=== PATIENT | male | born 1970 | race Two or more races ===

== ENCOUNTER 2024-02-01 21:16 | Emergency (ER) | payer MEDICAID, OTHER ==
[~2024-02-01] VITALS: Ht 177.8 cm; Wt 100.0 kg
[2024-02-01 22:01] LABS: Basophils # (auto) 0.1 10 ^3/uL (0-0.2); Basophils % (auto) 0.8 % (0.0-2.0); Eosinophils # (auto) 0.1 10 ^3/uL (0-0.8); Eosinophils % (auto) 0.8 % (0.0-7.0); Hematocrit 42.3 % (41.0-53.0); Hemoglobin 14.4 g/dL (13.5-17.5); Lymphocytes # (auto) 1.5 10 ^3/uL (0.4-5.4); Lymphocytes % (auto) 20.5 % (10.0-50.0); Mean Corpuscular Hemoglobin 31.4 pg (28.0-32.0); Mean Corpuscular Volume 92.3 fL (80.0-100.0); Monocytes # (auto) 0.6 10 ^3/uL (0-1.3); Monocytes % (auto) 8.4 % (0.0-12.0); Neutrophils # (auto) 4.9 10 ^3/uL (1.6-8.6); Neutrophils % (auto) 69.5 % (37.0-80.0); Nucleated Red Blood Cells % 0.2 %; Platelet Count (auto) 302 10^3/uL (140-450); Red Blood Cells 4.58 10^6/uL (4.5-5.90); White Blood Cell 7.1 10^3/uL (4.4-10.8)
[2024-02-01 22:20] LABS: Alanine Aminotransferase 50 U/L (7-40); Albumin 4.2 g/dL (3.2-4.8); Alkaline Phosphatase 90 U/L (46-116); Anion Gap 9 (5-15); Aspartate Aminotransferase 52 U/L (13-40); BUN/Creatinine Ratio 5.8 (10.0-20.0); Blood Urea Nitrogen 6 mg/dL (9-23); Carbon Dioxide 21 mmol/L (20-30); Chloride 108 mmol/L (98-107); Glucose 107 mg/dL (74-106); Lipase 31 U/L (12-53); Potassium 3.6 mmol/L (3.5-5.1); Sodium 138 mmol/L (136-145)
[2024-02-01 22:21] LABS: Bilirubin, Total 1.4 mg/dL (0.2-1.0); Total Protein 7.4 g/dL (5.7-8.2)
[2024-02-02] MEDS ORDERED: IBUP-1455 PO (02:34)
[2024-02-02] MEDS ORDERED: LOPE7.5C PO (02:34)
[2024-02-02] MEDS ORDERED: ZOFR4T PO (02:34)
[2024-02-02] MEDS ORDERED: CIPR-173 PO (02:34)
[2024-02-02] MEDS ORDERED: DICY10CA PO (02:34)
[2024-02-02] MEDS ORDERED: METR-344 PO (02:34)
[2024-02-02] MEDS: SODIUM CHLORIDE 0.9% 1,000 ML IV ONE (02:42)
[2024-02-02 02:48] VITALS: TEMP 98; O2SAT 97
[2024-02-02] MEDS: MORPHINE SULFATE 4 MG/ML SYR/VIAL IV ONE (02:59)
[2024-02-02] MEDS: ONDANSETRON HCL 4 MG/2 ML VIAL IV ONE (02:59)
[2024-02-02 03:35] VITALS: BP 108/70; PULSE 85; RESP 16
[2024-02-02] MEDS: KETOROLAC TROMETH 30 MG/ML 1ML VIAL IV ONE (03:48)
== END 2024-02-02 04:47 | disposition home or self-care (01) ==
LOC: EDBD 21:16 → ER 21:16
DX: R10.12 Left upper quadrant pain (principal); R11.10 Vomiting, unspecified; R19.7 Diarrhea, unspecified; Z98.890 Other specified postprocedural states
CPT/HCPCS: 36415; 74176; 80053; 80320; 83605; 83690; 83880; 84484; 85025; 96361; 96374; 96375; 99285; J1885; J2270; J2405; J7030; 93005